=== PATIENT | female | born 2000 | race Caucasian/White ===

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

== ENCOUNTER 2020-10-03 22:52 | Inpatient (IN) | payer BC ==
[2020-10-04] MEDS ORDERED: Lactated Ringers 1,000 ML ONE (00:18)
[2020-10-04] MEDS ORDERED: Ondansetron 4 MG/2 ML SDV IVPUSH PRN (00:26)
[2020-10-04] MEDS ORDERED: Sodium Chloride 0.9% 10 ML Syringe FLUSH PRN (00:26)
[2020-10-04] MEDS ORDERED: Nalbuphine 10 MG/1 ML Vial IVPUSH PRN (00:29)
[2020-10-04] MEDS ORDERED: Oxytocin/Lactated Ringers 10 UNIT/1,000 ML BAG IV SCH (00:30)
--- NOTE | 2020-10-04 00:30 | PCM.LDHP ---
L&D History of Present Illness - General Date of Service: 10/04/20 Admit Problem/Dx: Admission Diagnosis/Problem Admission Diagnosis/Problem 10/04/20 00:19 Adilia is a 21-year-old 1 para 0 white female who was evaluated in labor and delivery with complaints of recurrent abdominal pain similar to contractions and decrease in activity. Her ARTEM is 12/18/2020 placing her at 29-2/7 weeks gestational age. She reports decreased activity since approximately 1600 hrs. today when she was at work at the [employer]. She reports that during the course of the last 48 hours she has had progressively increasing tightness of her abdomen which now are occurring every 4 to 5 minutes lasting for approximately 1 minute and felt to be 7 on a scale of 10 as far as pain is concerned. She denies any vaginal bleeding, vaginal fluid loss abnormal vaginal secretions. Bedside ultrasound done for evaluation of heart tones after nursing staff was unable to obtain nursing heart tones with monitor shows a nonviable intrauterine with the baby in vertex presentation. Cervical exam shows approximately 3+ centimeters dilation/60% effacement/very soft/cephalic presentation/bag johansen intact/anterior to mid position/-3 station. Findings are consistent with intrauterine demise with cervical change consistent with labor. 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 ARTEM is 12/18/2020 placing her at 29-2/7 weeks gestational age. Her ARTEM is set by her first ultrasound on 04/28/2020 at which time she was 6-4/7 weeks gestational age. Patient had menarche at approximately age 13. Cycles on a regular basis. Last menstrual period fairly certain. Has not had a Pap smear up to this point. No STDs reported. course: Patient's first evaluation was done on 04/19/2020 at 5-2/7 weeks gestational age. She has been seen on a regular basis. Her weight gain has been from approximately 135 pounds to 150+ pounds. Fundal height growth has been appropriate. Her obstetric ultrasound done and just past 20 weeks was relatively unremarkable with growth consistent with gestational age. Patient reports no significant concerns regarding the . She does have a history of asthma but has had no problems during this . She has not been even using an inhaler that she has been previously prescribed. She has a history of depression in the past and has been on antidepressants but has not be en on anything with this . Her records reveal previous history of depression medically treated with hospitalization in October 2015 after Zoloft overdose. Past medical history: 1. Anxiety 2. Celiac disease confirmed with endoscopic biopsy 3. Depression 4. Drug overdose with hospitalization at [facility] October 2015 after Zoloft overdose Past surgical history: 1. EGD for celiac disease Family history: Mother with type 2 diabetes. Mother with kidney disease. Father with chronic strep obstructive pulmonary disease. Maternal uncle with some type of cancer type unknown. Maternal grandmother with skin cancer and melanoma this. Maternal grandfather with some type of cancer unknown paternal grandmother with breast cancer. Paternal grandfather with some type of cancerunknown. Maternal uncle with celiac disease. A sister with chromosomal abnormality. Sister with hearing loss. Cystoscopy with orofacial clefting. No bleeding, blood clotting or related problems otherwise noted. Social history. Patient is single. Her significant other is called with the . He is not here at this time as he is working in [facility] and to reach him. Reports not using any significant muscle alcohol, drugs or tobacco. 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 Review of systems: Major symptoms reported are decrease in activity and repetitive contractions as described in HPI.. Skin: Negative Lungs: No infectious symptoms or shortness of breath Cardiovascular: No chest pain or exercise intolerance Breasts: No lumps, changes in size, pain, dimpling, discharge or axillary or supraclavicular concerns. GI: Negative : Per HPI. Musculoskeletal: Negative Neurological: Negative Physical exam: In general the patient is well-developed, well-nourished, pleasant female of stated age in acute emotional distress secondary to news of viability of her . Also in discomfort secondary to contraction pains. Skin is warm dry without lesions. HEENT, neck and back within normal limits. Lungs are clear with good breath sounds in all lung branch. Cardiovascular exam shows regular and rhythm without murmurs. Deferred at this time. Abdomen is gravid with fundal height of 25-1/2 cm. Baby is in vertex presentation by ultrasound. Genital per exam shows vertex to be 3+ centimeters dilated/60% effaced/very soft/mid position/-3 station/cephalic presentation/BOWIno bleeding Extremities and neurological exam are grossly within normal limits. 10/04/20 14:11 Addendum to admission H&P: Ultrasound done shortly after admission showed a soria, nonviable fetus with an estimated gestational age of 25-6/7 weeks. Growth at 48 percentile. EFW 889 g (1 pound 15 ounces). No heart tones noted. There is a somewhat irregular hypoechoic area beneath the placenta in the fundal area of the uterus. Greatest dimension is 7.4 cm and is most probabl y consistent with an actual placenta. - Related Data Allergies/Adverse Reactions: Allergies Allergy/AdvReac Type Severity Reaction Status Date / Time montelukast sodium Allergy Hives Verified 10/04/20 05:33 [From Harpreet] Home Medications: Home Meds Acetaminophen [Tylenol] 650 mg PO Q4H PRN tablet 10/04/20 [Rx] FLUoxetine HCl [Prozac] 20 mg PO DAILY #30 capsule 10/04/20 [Rx] Ibuprofen [Motrin] 600 mg PO Q4H PRN tablet 10/04/20 [Rx] Vits #93/Iron Fum/FA [ Formula Tablet] 1 tab PO DAILY 10/04/20 [History] Past Medical History - Past Health History Medical/Surgical History: Denies Medical/Surgical History Gastrointestinal History: Reports: Celiac Disease Musculoskeletal History: Reports: Other (See Below) Other Musculoskeletal History: shoulder issues Neurological History: Reports: Concussion, Migraines Psychiatric History: Reports: Anxiety, Depression Social & Family History - Family History Family Medical History: No Pertinent Family History - Caffeine Use Caffeine Use: Reports: None - Living Situation & Occupation Living situation: Reports: Single, with Family H&P Review of Systems - Review of Systems: Review Of Systems: See Below L&D Exam - Exam Exam: See Below - Patient Data Result Diagrams: 10/04/20 00:45 10/04/20 00:45 Problem List Initiated/Reviewed/Updated: Yes Orders Last 24hrs: Active Orders 24 hr Category Date Time Status OB Ltd 1 or More Fetus [US] Routine Exams 10/04/20 00:07 Ordered Assessment/Plan Comment:: Marylin Pat is a 21-year-old 1 para 0 white female with an ARTEM of 12/18/2020 placing her at 29-2/7 weeks gestational age who was evaluated in labor and delivery with complaints of recurrent abdominal pain similar to contractions and decrease in activity and is found on ultrasound to have an intrauterine demise, advanced cervical dilation consistent with active labor. 2. Risk factors for the include history of celiac disease, depression/anxiety, history of previous Zoloft overdose, history of asthma which has been stable during the course of this 3. Allergies: Singulair 4. Desiring epidural for labor analgesia Plan: 1. Complete obstetric ultrasound to evaluate for potential cause of demise and labor 2. Laboratory testing consist of CMP, PT, PTT and INR, CBC, Covid19 testing, RPR, urine analysis and urine drug screen 3. Epidural for labor analgesiafluid bolus prior to the epidural 4. Spiritual care as indicated and desired by patient 5. Anticipate 6. Emotional support during labor and delivery.
[2020-10-04] MEDS: Lactated Ringers 1,000 ML IV SCH ×2 (00:49→00:54)
--- NOTE | 2020-10-04 01:30 | PCM.SN.2 ---
- Free Text/Narrative Note: Delivery note: Stage I labor: Over the course of approximately 1 hour after admission in labor delivery the patient very rapidly progressed to adequate dilation to allow delivery of a nonviable 29-week fetus. Stage II labor: She quickly progressed to complete cervical dilation and at 0103 hrs. on 10/04/2020 rapidly delivered a male infant weighing 2 pounds, 4 ounces with a length of 15 inches. The baby had Apgars of 0 and 0. There were no perineal lacerations. Cord was clamped x2 and cut. There were 3 vessels in the umbilical cord. Baby was held by the mother after delivery. Baby showed no gross defects but there was evidence that the demise had occurred sometime ago as was evidenced by the breakdown in skin, loss of cephalic turgor, and overall appearance of the baby. Stage III labor: Placenta delivered spontaneously right after delivery of the baby. There appeared to be a clot approximately 5 x 4 cm in size affecting a portion of the placenta. Findings consistent with ultrasound findings supporting a diagnosis of abruption of placenta. Placenta appeared intact and complete and is sent for gross/histologic evaluation. Pitocin was started at 500 cc an hour per IV per protocol to facilitate increase in uterine tone and decrease risk of bleeding. Patient appears to be grieving appropriately. Family/friends are present and supportive.
[2020-10-04 04:54] VITALS: BP 138/74; PULSE 68
[2020-10-04] MEDS ORDERED: Acetaminophen 325 MG Tab PO PRN (04:58)
[2020-10-04] MEDS ORDERED: Ibuprofen 600 MG Tab PO PRN (04:58)
--- NOTE | 2020-10-04 08:49 | PCM.DCSUM1 ---
Discharge Summary - Hospital Course Free Text/Narrative:: Adilia was admitted during the night of 10/03/2020 with reported contractions, decreased activity. She was diagnosed with a nonviable intrauterine at 29-2/7 weeks gestational age. Ultrasound showed a significant abruption of placenta in the fundal area of her uterus. Upon initial evaluation she was lalitha approximately 4 to 5 minutes, intensity was 7/10. Her cervix is dilated to 3+ centimeters, 60% effaced, mid position, very soft with bulging bag of johansen. Baby in vertex presentation. She was admitted, laboratory testing was done and she was allowed to progress in labor. Admitting diagnosis was intrauterine at 39-2/7 weeks gestational age with intrauterine demise felt to be most probably secondary to abruption of placenta. No inciting or causative events were identified regarding the abruption of placenta. Stage I labor: Over the course of approximately 1 hour after admission in labor delivery the patient very rapidly progressed to adequate dilation to allow delivery of a nonviable 29-week fetus. Stage II labor: She quickly progressed to complete cervical dilation and at 0103 hrs. on 10/04/2020 rapidly delivered a male infant weighing 2 pounds, 4 ounces with a length of 15 inches. The baby had Apgars of 0 and 0. There were no perineal lacerations. Cord was clamped x2 and cut. There were 3 vessels in the umbilical cord. Baby was held by the mother after delivery. Baby showed no gross defects but there was evidence that the demise had occurred sometime ago as was evidenced by the breakdown in skin, loss of cephalic turgor, and overall appearance of the baby. Stage III labor: Placenta delivered spontaneously right after delivery of the baby. There appeared to be a clot approximately 5 x 4 cm in size affecting a portion of the placenta. Findings consistent with ultrasound findings supporting a diagnosis of abruption of placenta. Placenta appeared intact and complete and is sent for gross/histologic evaluation. Pitocin was started at 500 cc an hour per IV per protocol to facilitate increase in uterine tone and decrease risk of bleeding. Patient appears to be grieving appropriately. Family/friends are present and supportive. At this time just prior to discharge patient appears to be doing reasonably well. She is grieving appropriately. She has good support from family and boyfriend. Has no physical concerns at this time. Bleeding is minimal. She is voiding well. She is ambulating well. She has a history of care. Reviewed option of being antidepressant therapy in anticipation of suspected emotional times in the next week or 2. She is accepting of this. She has been on Prozac with good results in the past. We will restart Prozac at 20 mg p.o. daily. Medication, risk, benefits, limitations are discussed in detail with patient. She appears understand and would like to proceed. Prescriptions given to her. Quantity 30, refill x3. Diagnosis: Stroke: No - Discharge Data Discharge Date: 10/04/20 Discharge Disposition: Home, Self-Care 01 Condition: Good - Referral to Home Health Primary Care Physician: Kassidy Moeller MD - Patient Instructions Diet: Regular Diet as Tolerated Activity: As Tolerated (No intercourse or tampons until bleeding resolves) Driving: May Drive Today Showering/Bathing: May Shower (May take a bath) Notify Provider of: Fever, Increased Pain, Swelling and Redness, Nausea and/or Vomiting - Discharge Plan Prescriptions/Med Rec: FLUoxetine HCl [Prozac] 20 mg PO DAILY #30 capsule Home Medications: Home Meds Acetaminophen [Tylenol] 650 mg PO Q4H PRN tablet 10/04/20 [Rx] FLUoxetine HCl [Prozac] 20 mg PO DAILY #30 capsule 10/04/20 [Rx] Ibuprofen [Motrin] 600 mg PO Q4H PRN tablet 10/04/20 [Rx] Vits #93/Iron Fum/FA [ Formula Tablet] 1 tab PO DAILY 10/04/20 [History] Referrals: Kassidy Moeller MD [Primary Care Provider] - (Appointment 10/11/20 at 11:15 am) - Discharge Summary/Plan Comment DC Time >30 min.: No Discharge Summary/Plan Comment: Discharge instructions: 1. Discharge home 2. Diet, activity and follow-up discussed with patient. 3. Precautions given concern increased pain, bleeding, temperature, signs/symptoms of DVT/PE. 4. Medications per home medication was printed, discussed with and given to the patient. 5. [facility] Diagnosis: 1. 29-2/7-week intrauterine with intrauterine demise 2. Abruptio placenta as potential cause of demise Condition: Good - Patient Data Vitals - Most Recent: Last Vital Signs Temp 37.3 C 10/04/20 00:26 Pulse 68 10/04/20 00:26 Resp 16 10/04/20 00:26 BP 138/74 10/04/20 00:26 Pulse Ox 100 10/04/20 00:26 Weight - Most Recent: 67.268 kg Lab Results - Last 24 hrs: Laboratory Results - last 24 hr 10/03/20 10/03/20 10/04/20 Range/Units 23:05 23:05 00:45 WBC 13.68 H (3.98-10.04) K/mm3 RBC 3.91 L (3.98-5.22) M/mm3 Hgb 10.5 L D (11.2-15.7) gm/dl Hct 33.3 L (34.1-44.9) % MCV 85.2 (79.4-94.8) fl MCH 26.9 (25.6-32.2) pg MCHC 31.5 L (32.2-35.5) g/dl RDW Std Deviation 50.1 H (36.4-46.3) fL Plt Count 496 H (182-369) K/mm3 MPV 8.9 L (9.4-12.3) fl Neut % (Auto) 74.6 H (34.0-71.1) % Lymph % (Auto) 14.8 L (19.3-51.7) % [place] % (Auto) 7.7 (4.7-12.5) % Eos % (Auto) 2.6 (0.7-5.8) Baso % (Auto) 0.2 (0.1-1.2) % Neut # (Auto) 10.19 H (1.56-6.13) K/mm3 Lymph # (Auto) 2.02 (1.18-3.74) K/mm3 [place] # (Auto) 1.06 H (0.24-0.36) K/mm3 Eos # (Auto) 0.36 (0.04-0.36) K/mm3 Baso # (Auto) 0.03 (0.01-0.08) K/mm3 PT (9.7-12.0) SECONDS INR Sodium (136-145) mEq/L Potassium (3.5-5.1) mEq/L Chloride (98-107) mEq/L Carbon Dioxide (21-32) mEq/L Anion Gap (5-15) BUN (7-18) mg/dL Creatinine (0.55-1.02) mg/dL Est Cr Clr Drug Dosing mL/min Estimated GFR (MDRD) (>60) mL/min BUN/Creatinine Ratio (14-18) Glucose (74-106) mg/dL Calcium (8.5-10.1) mg/dL Total Bilirubin (0.2-1.0) mg/dL AST (15-37) U/L ALT (14-59) U/L Alkaline Phosphatase (46-116) U/L Total Protein (6.4-8.2) g/dl Albumin (3.4-5.0) g/dl Globulin gm/dL Albumin/Globulin Ratio (1-2) Urine Color Yellow (Yellow) Urine Appearance Clear (Clear) Urine pH 6.0 (5.0-8.0) Ur Specific [place] > or = 1.030 (1.005-1.030) Urine Protein 2+ H (Negative) Urine Glucose (UA) Negative (Negative) Urine Ketones Negative (Negative) Urine Occult Blood 1+ H (Negative) Urine Nitrite Negative (Negative) Urine Bilirubin Negative (Negative) Urine Urobilinogen 0.2 (0.2-1.0) Ur Leukocyte Esterase Negative (Negative) U Hyaline Cast (Auto) 0-5 (0-5) /lpf Urine RBC 0-5 (0-5) /hpf Urine WBC 0-5 (0-5) /hpf Ur Squamous Epith Cells 5-10 H (0-5) /hpf Urine Bacteria Few (FEW) /hpf Urine Mucus Moderate H (FEW) /hpf Urine Opiates Screen Negative (LVGVON=914) Ur Buprenorphine Scrn Negative (CUTOFF=10) Ur Oxycodone Screen Negative (HKJ7JD=653) Urine Methadone Screen Negative (BUXGFA=965) Ur Propoxyphene Screen Negative (IRYOMZ=771) Ur Barbiturates Screen Negative (SDHDMV=189) Ur Tricyclics Screen Negative (PPTIBP=117) Ur Phencyclidine Scrn Negative (CUTOFF=25) Ur Amphetamine Screen Negative (AQKFZG=991) U Methamphetamines Scrn Negative (QWLKED=137) U Benzodiazepines Scrn Negative (OLGHQV=106) U Cocaine Metab Screen Negative (OUMRJT=225) U Marijuana (THC) Screen Presumptive positive H (CUTOFF=50) Blood Type Gel Antibody Screen 10/04/20 10/04/20 10/04/20 Range/Units 00:45 00:45 00:45 WBC (3.98-10.04) K/mm3 RBC (3.98-5.22) M/mm3 Hgb (11.2-15.7) gm/dl Hct (34.1-44.9) % MCV (79.4-94.8) fl MCH (25.6-32.2) pg MCHC (32.2-35.5) g/dl RDW Std Deviation (36.4-46.3) fL Plt Count (182-369) K/mm3 MPV (9.4-12.3) fl Neut % (Auto) (34.0-71.1) % Lymph % (Auto) (19.3-51.7) % [place] % (Auto) (4.7-12.5) % Eos % (Auto) (0.7-5.8) Baso % (Auto) (0.1-1.2) % Neut # (Auto) (1.56-6.13) K/mm3 Lymph # (Auto) (1.18-3.74) K/mm3 [place] # (Auto) (0.24-0.36) K/mm3 Eos # (Auto) (0.04-0.36) K/mm3 Baso # (Auto) (0.01-0.08) K/mm3 PT 9.9 (9.7-12.0) SECONDS INR < 0.93 Sodium 140 (136-145) mEq/L Potassium 4.2 (3.5-5.1) mEq/L Chloride 106 (98-107) mEq/L Carbon Dioxide 23 (21-32) mEq/L Anion Gap 15.2 H (5-15) BUN 13 (7-18) mg/dL Creatinine 0.5 L (0.55-1.02) mg/dL Est Cr Clr Drug Dosing 154.98 mL/min Estimated GFR (MDRD) > 60 (>60) mL/min BUN/Creatinine Ratio 26.0 H (14-18) Glucose 91 (74-106) mg/dL Calcium 9.2 (8.5-10.1) mg/dL Total Bilirubin 0.5 (0.2-1.0) mg/dL AST 20 (15-37) U/L ALT 16 (14-59) U/L Alkaline Phosphatase 124 H (46-116) U/L Total Protein 6.8 (6.4-8.2) g/dl Albumin 2.9 L (3.4-5.0) g/dl Globulin 3.9 gm/dL Albumin/Globulin Ratio 0.7 L (1-2) Urine Color (Yellow) Urine Appearance (Clear) Urine pH (5.0-8.0) Ur Specific [place] (1.005-1.030) Urine Protein (Negative) Urine Glucose (UA) (Negative) Urine Ketones (Negative) Urine Occult Blood (Negative) Urine Nitrite (Negative) Urine Bilirubin (Negative) Urine Urobilinogen (0.2-1.0) Ur Leukocyte Esterase (Negative) U Hyaline Cast (Auto) (0-5) /lpf Urine RBC (0-5) /hpf Urine WBC (0-5) /hpf Ur Squamous Epith Cells (0-5) /hpf Urine Bacteria (FEW) /hpf Urine Mucus (FEW) /hpf Urine Opiates Screen (CGZBEK=345) Ur Buprenorphine Scrn (CUTOFF=10) Ur Oxycodone Screen (PIL7RT=890) Urine Methadone Screen (RAXIZK=846) Ur Propoxyphene Screen (JHPYYT=812) Ur Barbiturates Screen (XNHBMD=557) Ur Tricyclics Screen (HPCJNL=335) Ur Phencyclidine Scrn (CUTOFF=25) Ur Amphetamine Screen (AHCRCK=550) U Methamphetamines Scrn (QPLCEJ=349) U Benzodiazepines Scrn (BQXQEJ=170) U Cocaine Metab Screen (ETMVMO=475) U Marijuana (THC) Screen (CUTOFF=50) Blood Type A POSITIVE Gel Antibody Screen Negative Med Orders - Current: Current Medications Acetaminophen (Tylenol) 650 mg PO Q4H PRN PRN Reason: mild pain or fever Ibuprofen (Motrin) 600 mg PO Q4H PRN PRN Reason: Mild pain or fever Discontinued Medications Lactated Ringer's (Ringers, Lactated) Confirm Administered Dose 1,000 mls @ as directed .ROUTE .STK-MED ONE Stop: 10/04/20 00:19 Last Admin: 10/04/20 00:50 Dose: Not Given Documented by: Lactated Ringer's (Ringers, Lactated) 1,000 mls @ 125 mls/hr IV ASDIRECTED CHRISTIAN Last Admin: 10/04/20 00:54 Dose: 125 mls/hr Documented by: Oxytocin/Lactated Ringer's (Pitocin In Lr 10 Units/1,000 Ml) 10 unit in 1,000 mls @ 500 mls/hr IV .CONTINUOUS CHRISTIAN Last Admin: 10/04/20 01:06 Dose: 500 mls/hr Documented by: Nalbuphine HCl (Nubain) 10 mg IVPUSH Q2H PRN PRN Reason: Pain Last Admin: 10/04/20 00:51 Dose: 10 mg Documented by: Ondansetron HCl (Zofran) 4 mg IVPUSH Q6H PRN PRN Reason: Nausea/Vomiting Sodium Chloride (Saline Flush) 10 ml FLUSH ASDIRECTED PRN PRN Reason: Keep Vein Open
--- NOTE | 2020-10-04 09:52 | US ---
Obstetrical ultrasound: Multiple real-time images were obtained transabdominally. Comparison: No previous study. Dates: Current ultrasound: ARTEM 01/11/21, gestational age 25 weeks 6 days presentation: Cephalic Placenta: Anterior with no findings of placenta previa Amniotic fluid: CATHERINE 10.6 cm Other findings: Hypoechoic area is seen next to the placenta suspicious for hematoma measuring approximately 7.4 cm in greatest dimension. Measurements: BPD: 6.07 cm - 24 weeks 5 days Head circumference: 23.72 cm - 25 weeks 6 days Abdominal circumference: 21.58 cm - 26 weeks 1 day Femur length: 4.88 cm - 26 weeks 3 days Estimated weight: 889 g (1 lb. 15 oz.), estimated weight 48th percentile for age by current ultrasound Heart rate: No heart activity is identified. Pressure: 1. Single intrauterine fetus currently cephalic in presentation. Dates as noted above. 2. No heart activity is seen compatible with placental demise. 3. 7.4 cm hematoma next to the placenta most likely related to probable abruption. 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
== END 2020-10-04 10:15 | disposition home or self-care (01) | DRG 566 ==
LOC: JD.OBCHECK 22:52 → JD.OB 23:00 → OBSVTOIN 10-04 01:17 → UNDOADMIN 10-04 01:17 → JD.OBCHECK 10-04 01:17 → JD.OB 10-04 01:17 → UNDODISOB 10-04 10:15
PROVIDERS: ADMIT Obstetrics & Gynecology; ATTEND Obstetrics & Gynecology
DX: O45.93 Premature separation of placenta, unspecified, third trimester (principal); O26.893 Other specified pregnancy related conditions, third trimester; Z37.1 Single stillbirth; Z3A.29 29 weeks gestation of pregnancy; Z88.8 Allergy status to other drugs, medicaments and biological substances
CPT/HCPCS: 36415; 59409; 76815; 76815-26; 80053; 80306; 81001; 85025; 85610; 86592; 86850; 86900; 86901; G0480; J2300; J2590; J7120